=== PATIENT | male | born 1970 | race Caucasian/White ===

== ENCOUNTER 2020-06-20 06:47 | Day surgery (SDC) | payer BC, OTHER ==
[~2020-06-20 06:47] MED LIST: Sodium Chloride 0.9% 10 ML Syringe FLUSH PRN
[2020-06-20] MEDS ORDERED: Midazolam 1 MG/ML 2 ML SDV IV ONE (06:48)
[2020-06-20] MEDS ORDERED: Propofol 200 MG/20 ML SDV IV ONE (06:48)
[2020-06-20] MEDS ORDERED: Ketamine 500 mg/10 ML MDV IV ONE (06:48)
[2020-06-20] MEDS: Lactated Ringers 1,000 ML IV SCH (07:24)
--- NOTE | 2020-06-20 08:50 | PCM.OPNOTE ---
- General Post-Op/Procedure Note Date of Surgery/Procedure: 06/20/20 Operative Procedure(s): c scope with biopsy Findings: rectal polyps x 3 Pre Op Diagnosis: screening Post-Op Diagnosis: rectal polyp x3 Anesthesia Technique: MAC Primary Surgeon: Олег Hernandez Anesthesia Provider: Janell Early Complications: None Condition: Good Free Text/Narrative:: see dictation
--- NOTE | 2020-06-21 14:32 | OR ---
DATE OF OPERATION: 06/20/2020 SURGEON: Олег Hernandez MD PROCEDURE PERFORMED: Colonoscopy with hot loop and cold forceps biopsy. PREOPERATIVE DIAGNOSIS: Need for colon cancer screening. POSTOPERATIVE DIAGNOSIS: Rectal polyp x3. INDICATIONS FOR PROCEDURE: This is a 49-year-old white male who is presenting for his initial screening colonoscopy. He was offered and accepted same. DESCRIPTION OF OPERATION: After an excellent IV sedation was administered, digital rectal exam was performed. No marked abnormality was noted. The flexible colonoscope was inserted and advanced to the cecum. Prep was excellent. The following findings were noted: Ascending colon, unremarkable. Transverse colon, unremarkable. Descending colon, unremarkable. Sigmoid, unremarkable. Rectum, in the proximal rectum, there was a small pedunculated- appearing polyp consistent with an adenoma. This was biopsied with the hot loop snare and submitted, and in the distal rectum, there were 2 hyperplastic- appearing polyps. These were biopsied and submitted in 1 container. The results will be sent to the patient via letter. He tolerated the procedure well, was returned to his room in good condition. /[id number] /MODL
== END 2020-06-20 09:20 | disposition home or self-care (01) ==
LOC: FB.SDS 06:47
PROVIDERS: ATTEND Surgery
DX: Z12.11 Encounter for screening for malignant neoplasm of colon (principal); D12.8 Benign neoplasm of rectum; F17.210 Nicotine dependence, cigarettes, uncomplicated; Z88.7 Allergy status to serum and vaccine
CPT/HCPCS: 00812-QZ; 88305; J2250; J2704; J7120